=== PATIENT | female | born 1950 | race Caucasian/White ===

== ENCOUNTER 2016-12-18 07:14 | Emergency (ER) | payer OTHER ==
--- NOTE | 2016-12-18 07:19 | ED Physician Documentation ---
PD HPI ABD PAIN - Stated complaint Stated Complaint: LOWER ABD PX - History obtained from History obtained from: Patient - History of Present Illness Timing - onset: Yesterday Timing - duration: Days (08/08) Timing - details: Gradual onset, Still present, Waxing and waning Quality: Cramping, Aching, Pain Location: Suprapubic, LLQ, Other (low back) Radiation: Lower back Improved by: No: Eating, BM Worsened by: Moving, Position. No: Eating, Palpation Associated symptoms: Nausea, Loss of appetite. No: Fever, Vomiting, Diarrhea, Constipation Similar symptoms before: Diagnosis (diverticulitis twice in the past, also occasional UTIs.) Recently seen: Not recently seen Review of Systems Constitutional: reports: Chills, Myalgias. denies: Fever Nose: denies: Rhinorrhea / runny nose, Reviewed and negative Throat: denies: Sore throat Respiratory: denies: Cough GI: reports: Abdominal Pain, Nausea. denies: Abdominal Swelling, Vomiting, Constipation, Diarrhea : denies: Dysuria, Frequency, Discharge, Vaginal bleeding Skin: denies: Rash, Lesions PD PAST MEDICAL HISTORY - Past Medical History Cardiovascular: Valve disorder GI: Diverticulitis - Past Surgical History Past Surgical History: Yes General: Appendectomy Ortho: Hip replacement - Present Medications Home Medications: Ambulatory Orders Medication Instructions Recorded Confirmed Progesterone,Micronized 5 mg MC DAILY 08/28/13 12/18/16 [Progesterone] Cephalexin [Keflex] 500 mg PO QID #28 capsule 12/18/16 Clindamycin [Cleocin] 150 mg PO TID #21 capsule 12/18/16 Ondansetron Odt [Zofran] 4 mg TL Q6H PRN #15 tablet 12/18/16 - Allergies Allergies/Adverse Reactions: Allergies Allergy/AdvReac Type Severity Reaction Status Date / Time Penicillins Allergy Intermediate Rash Verified 08/28/13 07:23 metronidazole [From Flagyl] Allergy Headache Verified 08/28/13 09:51 Metronidazole HCl * Allergy Headache Verified 08/28/13 09:51 [From Flagyl] tetracycline [Tetracycline] Allergy Respiratory Verified 08/28/13 07:22 - Social History Does the pt smoke?: No Smoking Status: Never smoker Does the pt drink ETOH?: Yes Does the pt have substance abuse?: No - POLST Patient has POLST: No PD ED PE NORMAL - Vitals Vital signs reviewed: Yes - General General: Alert and oriented X 3, No acute distress, Well developed/nourished - HEENT HEENT: Pharynx benign - Neck Neck: Supple, no meningeal sign, No adenopathy - Cardiac Cardiac: RRR, No murmur - Respiratory Respiratory: Clear bilaterally - Abdomen Abdomen: Normal bowel sounds, Non distended, No organomegaly, Other (tender LLQ/ suprapubic area without percussion nor rebound. Mild local guarding. Rest of abdomen not tender. ) - Female Female : Deferred - Rectal Rectal: Deferred - Back Back: No CVA TTP - Derm Derm: Normal color, Warm and dry, No rash - Neuro Neuro: Alert and oriented X 3, No motor deficit, Normal speech Results - Vitals Vitals: Oxygen O2 Source Room air - Labs Labs: Laboratory Tests 12/18/16 12/18/16 12/18/16 07:50 07:50 08:30 WBC 14.2 H RBC 4.24 Hgb 12.6 Hct 37.3 MCV 88.1 MCH 29.8 MCHC 33.8 RDW 13.9 Plt Count 248 MPV 8.4 Neut # 11.9 H Lymph # 1.3 L [place] # 0.9 Eos # 0.0 Baso # 0.1 Absolute Nucleated RBC 0.02 Nucleated RBCs 0.1 Sodium 137 Potassium 3.7 Chloride 101 Carbon Dioxide 26 Anion Gap 10.0 BUN 16 Creatinine 0.6 Estimated GFR (MDRD) 100 Glucose 122 H Calcium 9.7 Total Bilirubin 0.8 AST 42 ALT 44 Alkaline Phosphatase 92 Total Protein 8.0 Albumin 4.8 Globulin 3.2 Albumin/Globulin Ratio 1.5 Lipase 27 Urine Color YELLOW Urine Clarity CLEAR Urine pH 6.5 Ur Specific [place] 1.015 Urine Protein NEGATIVE Urine Glucose (UA) NEGATIVE Urine Ketones NEGATIVE Urine Occult Blood TRACE-INTA Urine Nitrite NEGATIVE Urine Bilirubin NEGATIVE Urine Urobilinogen 0.2 (NORMAL) Ur Leukocyte Esterase NEGATIVE Ur Microscopic Review NOT INDICATED Urine Culture Comments NOT INDICATED PD MEDICAL DECISION MAKING - ED course Complexity details: reviewed results, considered differential (presumed diverticulitis and clinically does not seem complicated. Discussed imaging or not, and I don't think she needs imaging as likely diagnosis and does not seem likely perforated nor abscessed at this timing/symptoms of it. ), d/w patient Departure - Departure Disposition: 01 Home, Self Care Clinical Impression: Diverticulitis of gastrointestinal tract Abdominal pain Qualifiers: Abdominal location: lower abdomen, unspecified Qualified Code(s): R10.30 - Lower abdominal pain, unspecified Condition: Stable Record reviewed to determine appropriate education?: Yes Instructions: ED Diverticulitis Follow-Up: Janett Giron MD [Primary Care Provider] - Prescriptions: Clindamycin [Cleocin] 150 mg PO TID #21 capsule Cephalexin [Keflex] 500 mg PO QID #28 capsule Ondansetron Odt [Zofran] 4 mg TL Q6H PRN #15 tablet PRN Reason: Nausea / Vomiting Comments: Drink lots of fluids. TYlenol 4 times daily for pain. Zofran for nausea as needed. Keflex and Clindamycin antibiotics as directed for diverticulitis. Take some probiotics for the next week as well. Recheck if not improving over the next few days, sooner if worsening. Discharge Date/Time: 12/18/16 10:02
[2016-12-18] MEDS ORDERED: ONDANSETRON 4 MG/2 ML VIAL IVP STA (07:42)
[2016-12-18] MEDS ORDERED: KETOROLAC 60 MG/2 ML VIAL IVP STA (07:42)
[2016-12-18] MEDS ORDERED: SODIUM CHLORIDE 0.9% 1,000 ML IV ONE (07:42)
[2016-12-18] MEDS ORDERED: MORPHINE 2 MG/ML SYRINGE IVP STA ×2 (07:42→09:18)
[2016-12-18] MEDS ORDERED: ONDANSETRON 4 MG/2 ML VIAL ONE (07:57)
[2016-12-18] MEDS ORDERED: MORPHINE 2 MG/ML SYRINGE ONE ×2 (07:57→09:17)
[2016-12-18] MEDS ORDERED: KETOROLAC 30 MG/ML VIAL ONE (07:57)
[2016-12-18 08:15] LABS: ALBUMIN/GLOBULIN RATIO 1.5 (1.0-2.2); BILIRUBIN,TOTAL 0.8 mg/dL (0.2-1.0); CALCIUM 9.7 mg/dL (8.5-10.3); CREATININE 0.6 mg/dL (0.4-1.0); POTASSIUM 3.7 mmol/L (3.5-5.0)
[2016-12-18 08:31] LABS: BASOPHILS # (AUTO) 0.1 10^3/uL (0.0-0.1); BASOPHILS % (AUTO) 0.4 %; EOSINOPHILS % (AUTO) 0.2 %; HCT - HEMATOCRIT 37.3 % (37.0-47.0); HGB - HEMOGLOBIN 12.6 g/dL (12.0-16.0); LYMPHOCYTES # (AUTO) 1.3 10^3/uL (1.5-3.5); LYMPHOCYTES % (AUTO) 9.4 %; MEAN CORPUSCULAR HEMOGLOBIN 29.8 pg (27.0-31.0); MEAN CORPUSCULAR HGB CONC 33.8 g/dL (32.0-36.0); MEAN CORPUSCULAR VOLUME 88.1 fL (81.0-99.0); MEAN PLATELET VOLUME 8.4 fL (7.9-10.8); MONOCYTES # (AUTO) 0.9 10^3/uL (0.0-1.0); MONOCYTES % (AUTO) 6.3 %; NEUTROPHILS # (AUTO) 11.9 10^3/uL (1.5-6.6); NEUTROPHILS % (AUTO) 83.7 %; NUCLEATED RED BLOOD CELLS AUTO 0.1 /100WBC; RED BLOOD COUNT 4.24 10^6/uL (4.20-5.40); RED CELL DISTRIBUTION WIDTH 13.9 % (12.0-15.0); UNCORRECTED WHITE BLOOD COUNT 14.2 x10^3/uL; WHITE BLOOD COUNT 14.2 x10^3/uL (4.8-10.8)
[2016-12-18] MEDS ORDERED: cefTRIAXone 1 GM in SODIUM CHLORIDE 0.9% MINIBAG 100 ML IV STA (08:31)
[2016-12-18] MEDS ORDERED: cefTRIAXone 1 GM VIAL ONE (08:35)
[2016-12-18 08:41] LABS: BILIRUBIN,URINE NEGATIVE (NEGATIVE); PH,URINE 6.5 PH (5.0-7.5)
[2016-12-18 08:56] LABS: UA CHARGE (STRIP ONLY) YES; UR CULTURE IF IND NOT INDICATED
[2016-12-18] MEDS ORDERED: CLINDAMYCIN 150 MG CAPSULE PO STA (09:52)
[2016-12-18] MEDS ORDERED: CLINDAMYCIN 150 MG CAPSULE PO ONE (09:55)
[2016-12-18 10:02] VITALS: BP 104/50
== END 2016-12-18 10:02 | disposition home or self-care (01) ==
LOC: ED 07:14
DX: K57.92 Diverticulitis of intestine, part unspecified, without perforation or abscess without bleeding (principal)
CPT/HCPCS: 36415; 80053; 81003; 83690; 85025; 96361; 96365; 96375; 99284; A9270; 81001; 87086

== ENCOUNTER 2017-08-31 10:01 | Outpatient (CLI) | payer OTHER ==
--- NOTE | 2017-09-01 13:13 | DEXA Report ---
DEXA: 08/31/2017 CLINICAL INDICATION: Postmenopausal. TECHNIQUE: Dual energy x-ray absorptiometry (DXA) was performed on a [employer] system. Regions measured are the AP spine, femoral neck, and, if needed, forearm. COMPARISON: None. In accordance with the International Society for Clinical Densitometry (ISCD) guidelines, data from previous exams may be reanalyzed using current recommendations and techniques. This is done to allow a more accurate basis for comparison with the current study. FINDINGS The data for the lumbar spine is as follows: REGION BMD (g/cm/cm) T-SCORE Z-SCORE L1 1.026 -0.9 1.0 L2 1.053 -1.2 0.6 L3 1.020 -1.5 0.3 L4 1.003 -1.6 0.2 L1-L4 1.025 -1.3 0.5 NOTE: All evaluable vertebrae are used for classification. The data for the hip is as follows: REGION BMD (g/cm/cm) T-SCORE Z-SCORE Neck 0.780 -1.9 -0.2 TOTAL 0.838 -1.3 0.1 NOTE: The femoral neck or total proximal femur, whichever is lowest, is used for classification. IMPRESSION THE WHO CLASSIFICATION BASED ON THE INTERNATIONAL REFERENCE STANDARD IS OSTEOPENIA. THE FRACTURE RISK IS INCREASED. RECOMMENDATION: Patients with diagnosis of osteoporosis or osteopenia should have regular bone mineral density assessment. For those eligible for Medicare, routine testing is allowed once every 2 years. Testing frequency can be increased for patients who have rapidly progressing disease or for those who are receiving medical therapy to restore bone mass. COMMENT: World Health Organization (WHO) definitions for osteoporosis and osteopenia: NORMAL BMD: T-score at 1.0 or higher, fracture risk is low. OSTEOPENIA BMD: T-score between 1.0 and -2.5, fracture risk is increased. OSTEOPOROSIS BMD: T-score at 2.5 or lower, fracture risk high. National Osteoporosis Foundation recommends: 1. Obtain adequate dietary calcium (at least 1200 mg per day) and vitamin D (400 -800 international units per day). 2. Participate, as appropriate, in regular weightbearing and muscle- strengthening exercise. 3. Avoid tobacco use and reduce alcohol and caffeine intake. 4. For more detailed information see the website at www.NOF.org. TD: 08/31/2017 19:46 MTDD
== END 2017-08-31 10:02 | disposition home or self-care (01) ==
LOC: DI 10:01
PROVIDERS: ATTEND Naturopath
DX: Z13.820 Encounter for screening for osteoporosis (principal); M85.89 Other specified disorders of bone density and structure, multiple sites; Z78.0 Asymptomatic menopausal state
CPT/HCPCS: 77080

== ENCOUNTER 2019-02-06 08:21 | Emergency (ER) | payer OTHER ==
[2019-02-06 08:37] VITALS: BP 147/83
--- NOTE | 2019-02-06 08:58 | ED Physician Documentation ---
PD HPI URI - Stated complaint Stated Complaint: SORE THROAT - Chief complaint Chief Complaint: Heent - History obtained from History obtained from: Patient - History of Present Illness Timing - onset: How many days ago (2) Timing duration: Days (2) Timing details: Gradual onset, Still present Associated symptoms: Nasal congestion, Sore throat. 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 denies: Rhinorrhea / runny nose, Sinus pressure / pain Throat: reports: Sore throat. denies: Oral lesions / sores Respiratory: denies: Cough PD PAST MEDICAL HISTORY - Past Medical History Past Medical History: Yes Cardiovascular: Valve disorder Respiratory: Pneumonia GI: Diverticulitis - Past Surgical History Past Surgical History: Yes General: Appendectomy Ortho: Hip replacement - Present Medications Home Medications: Ambulatory Orders Medication Instructions Recorded Confirmed No Known Home Medications 02/06/19 02/06/19 - Allergies Allergies/Adverse Reactions: Allergies Allergy/AdvReac Type Severity Reaction Status Date / Time Penicillins Allergy Intermediate Rash Verified 02/06/19 08:40 metronidazole [From Flagyl] Allergy Headache Verified 02/06/19 08:40 Metronidazole HCl * Allergy Headache Verified 02/06/19 08:40 [From Flagyl] tetracycline [Tetracycline] Allergy Respiratory Verified 02/06/19 08:40 - Social History Does the pt smoke?: No Smoking Status: Never smoker Does the pt drink ETOH?: Yes Does the pt have substance abuse?: No - POLST Patient has POLST: No PD ED PE NORMAL - Vitals Vital signs reviewed: Yes - General General: Alert and oriented X 3, No acute distress, Well developed/nourished - HEENT HEENT: Moist mucous membranes. No: Pharynx benign (redness without exudate right tonsil. No peritonsillar swelling. ) - Neck Neck: Supple, no meningeal sign, No adenopathy - Cardiac Cardiac: RRR, No murmur - Respiratory Respiratory: Clear bilaterally - Derm Derm: Normal color, Warm and dry, No rash Results - Vitals Vitals: Vital Signs - 24 hr 02/06/19 08:31 Temperature 36.7 C Heart Rate 76 Respiratory 16 Rate Blood Pressure 147/83 H O2 Saturation 99 Oxygen O2 Source Room air - Labs Labs: Laboratory Tests 02/06/19 09:18 Group A Strep Rapid Negative PD MEDICAL DECISION MAKING - ED course Complexity details: reviewed results, considered differential, d/w patient ED course: Patient called with rapid test result by me. Departure - Departure Disposition: 01 Home, Self Care Clinical Impression: Pharyngitis Qualifiers: Pharyngitis/tonsillitis etiology: unspecified etiology Qualified Code(s): J02.9 - Acute pharyngitis, unspecified Condition: Stable Record reviewed to determine appropriate education?: Yes Instructions: ED Pharyngitis Viral Report Pending Follow-Up: Janett Giron MD [Primary Care Provider] - Comments: Rapid strep test is pending and if negative culture will then be pending. We will call you if the results is positive. Discharge Date/Time: 02/06/19 09:26
== END 2019-02-06 09:26 | disposition home or self-care (01) ==
LOC: ED 08:21
DX: J02.9 Acute pharyngitis, unspecified (principal)
CPT/HCPCS: 87070; 87430; 99281; 99282

== ENCOUNTER 2019-05-19 10:15 | Emergency (ER) | payer OTHER ==
[2019-05-19 10:49] LABS: BILIRUBIN,URINE NEGATIVE (NEGATIVE); GLUCOSE, URINE (UA) NEGATIVE (NEGATIVE); KETONES,URINE (UA) NEGATIVE (NEGATIVE); LEUKOCYTE ESTERASE, URINE NEGATIVE (NEGATIVE); NITRITE,URINE NEGATIVE (NEGATIVE); OCCULT BLOOD,URINE SMALL (NEGATIVE); PROTEIN,URINE NEGATIVE (NEGATIVE); UROBILINOGEN,URINE 0.2 (NORMAL) E.U./dL (NORMAL)
[2019-05-19 10:50] LABS: CLARITY,URINE CLEAR (CLEAR)
[2019-05-19 10:59] LABS: BACTERIA,URINE Rare /HPF (None Seen); RBC,URINE 0-5 /HPF (0-5); SQUAMOUS EPITHELIAL CELL,UR FEW Squamous (<= Few)
[2019-05-19 11:03] LABS: BASOPHILS # (AUTO) 0.1 10^3/uL (0.0-0.1); BASOPHILS % (AUTO) 0.5 %; EOSINOPHILS % (AUTO) 0.3 %; HGB - HEMOGLOBIN 12.7 g/dL (12.0-16.0); LYMPHOCYTES # (AUTO) 1.3 10^3/uL (1.5-3.5); LYMPHOCYTES % (AUTO) 11.4 %; MEAN CORPUSCULAR HEMOGLOBIN 29.7 pg (27.0-31.0); MEAN CORPUSCULAR HGB CONC 32.2 g/dL (32.0-36.0); MEAN CORPUSCULAR VOLUME 92.5 fL (81.0-99.0); MEAN PLATELET VOLUME 10.2 fL (7.9-10.8); MONOCYTES # (AUTO) 0.5 10^3/uL (0.0-1.0); MONOCYTES % (AUTO) 4.6 %; NEUTROPHILS # (AUTO) 9.3 10^3/uL (1.5-6.6); NEUTROPHILS % (AUTO) 82.8 %; PLT - PLATELET COUNT 306 10^3/uL (130-450); RED BLOOD COUNT 4.27 10^6/uL (4.20-5.40); RED CELL DISTRIBUTION WIDTH 13.4 % (12.0-15.0); WHITE BLOOD COUNT 11.2 x10^3/uL (4.8-10.8)
[2019-05-19 11:16] LABS: ALBUMIN 4.4 g/dL (3.2-5.5); ALBUMIN/GLOBULIN RATIO 1.3 (1.0-2.2); BILIRUBIN,TOTAL 0.9 mg/dL (0.2-1.0); CALCIUM 9.8 mg/dL (8.5-10.3); CREATININE 0.6 mg/dL (0.4-1.0); TOTAL PROTEIN 7.7 g/dL (6.7-8.2)
[2019-05-19] MEDS ORDERED: IOVERSOL 320 100 ML VIAL IVP ONE (12:10)
--- NOTE | 2019-05-19 12:16 | ED Physician Documentation ---
PD HPI ABD PAIN - Stated complaint Stated Complaint: LOWER ABD PX - Chief complaint Chief Complaint: Abd Pain - History obtained from History obtained from: Patient - History of Present Illness Timing - onset: How many weeks ago (1) Timing - duration: Weeks (1) Timing - details: Still present, Other (worsening lower abdominal pain and rectal pain) Severity Comments: moderate Quality: Aching, Pain Location: RLQ, Suprapubic, LLQ Radiation: Other (rectum) Improved by: BM Worsened by: Other (nothing) Associated symptoms: Nausea. No: Fever, Vomiting, Hematemesis, Diarrhea, Co nstipation, Melena, Hematochezia, Dysuria, Hematuria, Chest pain, Dizzy, Near syncope / syncope, Loss of appetite, Vaginal bleeding Similar symptoms before: Diagnosis (prior hx of diverticulitis) Recently seen: Not recently seen - Treatment prior to arrival Treatment prior to arrival: pepcid and aloe over her abdomen Review of Systems Ten Systems: 10 systems reviewed and negative Constitutional: reports: Fatigue. denies: Fever, Chills Cardiac: reports: Reviewed and negative Respiratory: reports: Reviewed and negative GI: reports: Nausea. denies: Abdominal Pain, Vomiting Skin: denies: Rash Neurologic: reports: Reviewed and negative Psychiatric: reports: Reviewed and negative Endocrine: reports: Reviewed and negative Immunocompromised: reports: Reviewed and negative PD PAST MEDICAL HISTORY - Past Medical History Past Medical History: Yes Cardiovascular: Valve disorder Respiratory: Pneumonia GI: Diverticulitis - Past Surgical History Past Surgical History: Yes General: Appendectomy Ortho: Hip replacement - Present Medications Home Medications: Ambulatory Orders Medication Instructions Recorded Confirmed Amox/Clav 875/125 [Augmentin] 1 each PO Q12H #28 tablet 05/19/19 Hydrocodone/Acetaminophen 1 - 2 each PO Q6H PRN #14 tablet 05/19/19 [Hydrocodon-Acetaminophen 5-325] Ondansetron Odt [Zofran] 4 mg TL Q6H PRN #10 tablet 05/19/19 - Allergies Allergies/Adverse Reactions: Allergies Allergy/AdvReac Type Severity Reaction Status Date / Time Penicillins Allergy Intermediate Rash Verified 05/19/19 10:17 metronidazole [From Flagyl] Allergy Headache Verified 05/19/19 10:17 Metronidazole HCl * Allergy Headache Verified 05/19/19 10:17 [From Flagyl] tetracycline [Tetracycline] Allergy Respiratory Verified 05/19/19 10:17 - Social History Does the pt smoke?: No Smoking Status: Never smoker Does the pt drink ETOH?: Yes Does the pt have substance abuse?: No - POLST Patient has POLST: No PD ED PE NORMAL - Vitals Vital signs reviewed: Yes - General General: Alert and oriented X 3, No acute distress, Well developed/nourished - HEENT HEENT: Atraumatic, Pharynx benign - Neck Neck: Supple, no meningeal sign, No JVD - Cardiac Cardiac: RRR - Respiratory Respiratory: No respiratory distress - Abdomen Abdomen: Soft, Non distended, Other (diffuse mild lower quadrant tenderness ) - Female Female : Deferred - Rectal Rectal: Deferred - Derm Derm: Normal color, Warm and dry, No rash - Extremities Extremities: No deformity, No edema - Neuro Neuro: Alert and oriented X 3 Eye Opening: Spontaneous Motor: Obeys Commands Verbal: Oriented GCS Score: 15 - Psych Psych: Normal mood, Normal affect Results - Vitals Vitals: Vital Signs - 24 hr 05/19/19 05/19/19 05/19/19 10:18 12:46 13:05 Temperature 37 C 3.6 C L Heart Rate 88 81 76 Respiratory 15 16 16 Rate Blood Pressure 118/55 L 137/69 H 142/68 H O2 Saturation 100 97 99 05/19/19 05/19/19 13:54 14:05 Temperature Heart Rate 75 74 Respiratory 16 16 Rate Blood Pressure 123/64 139/68 H O2 Saturation 98 97 Oxygen O2 Source Room air - Labs Labs: Laboratory Tests 05/19/19 05/19/19 05/19/19 10:25 10:25 10:41 WBC 11.2 H RBC 4.27 Hgb 12.7 Hct 39.5 MCV 92.5 MCH 29.7 MCHC 32.2 RDW 13.4 Plt Count 306 MPV 10.2 Neut # (Auto) 9.3 H Lymph # (Auto) 1.3 L [place] # (Auto) 0.5 Eos # (Auto) 0.0 Baso # (Auto) 0.1 Absolute Nucleated RBC 0.00 Nucleated RBC % 0.0 Sodium 142 Potassium 4.1 Chloride 104 Carbon Dioxide 28 Anion Gap 10.0 BUN 12 Creatinine 0.6 Estimated GFR (MDRD) 100 Glucose 179 H Calcium 9.8 Total Bilirubin 0.9 AST 33 ALT 31 Alkaline Phosphatase 81 Total Protein 7.7 Albumin 4.4 Globulin 3.3 Albumin/Globulin Ratio 1.3 Lipase 45 Urine Color YELLOW Urine Clarity CLEAR Urine pH 6.0 Ur Specific [place] 1.020 Urine Protein NEGATIVE Urine Glucose (UA) NEGATIVE Urine Ketones NEGATIVE Urine Occult Blood SMALL H Urine Nitrite NEGATIVE Urine Bilirubin NEGATIVE Urine Urobilinogen 0.2 (NORMAL) Ur Leukocyte Esterase NEGATIVE Urine RBC 0-5 Urine WBC 0-3 Ur Squamous Epith Cells FEW Squamous Urine Bacteria Rare Ur Microscopic Review INDICATED Urine Culture Comments NOT INDICATED mild leukocytosis, neg UA PD MEDICAL DECISION MAKING - ED course Complexity details: reviewed results, re-evaluated patient, considered differential, d/w patient, d/w family ED course: ddx- diverticulitis, colitis, proctitis, kidney stone, UTI 68 y/o F with hx of diverticulitis with 1 week of lower abdominal pain and now with some rectal pain., loose stool, nausea, no fever. Abdomen with diffuse lower abdominal tenderness, no guarding or rebound. Pt with stable vitals, afebrile. Note her Temperature recorded in the ED as 3.6 C but is actually 36 C. Labs are normal except a mild leukocytosis. CT shows an uncomplicated sigmoid diverticulitis. UA showed hematuria which may be due to inflammation in the pelvis from her infection. Pt has hx of skin test positive for penicillin allergy 40 years ago but has had no severe reaction. Thus will give trial of augmentin given her hx of poor tolerance with flagyl. Pt tolerated a dose of augmentin here without complication. Stable for discharge home with outpt f/u and return precautions. Departure - Departure Disposition: 01 Home, Self Care Clinical Impression: Sigmoid diverticulitis Condition: Stable Record reviewed to determine appropriate education?: Yes Instructions: ED Diverticulitis Follow-Up: Janett Giron MD [Primary Care Provider] - Within 1 week (to recheck your symptoms ) Prescriptions: Amox/Clav 875/125 [Augmentin] 1 each PO Q12H #28 tablet Hydrocodone/Acetaminophen [Hydrocodon-Acetaminophen 5-325] 1 - 2 each PO Q6H PRN #14 tablet PRN Reason: pain Ondansetron Odt [Zofran] 4 mg TL Q6H PRN #10 tablet PRN Reason: Nausea / Vomiting Comments: You have sigmoid diverticulitis. You should take the prescribed antibiotic until complete. If you develop a reaction (mouth swelling, difficulty breathing or severe rash) return to the ED to assess your symptoms and change the antibiotic. Nausea, diarrhea and typical side events from antibiotics and are not true allergies. IF you develop severe worsening pain you should also return to the ED. This should improve with the antibiotic you can take ibuprofen as needed for pain and the prescribed narcotic if pain is severe. Zofran is for nausea and can be used as needed as well.
[2019-05-19] MEDS ORDERED: MORPHINE 2 MG/ML CARPUJECT IVP STA (12:42)
[2019-05-19] MEDS ORDERED: ONDANSETRON 4 MG/2 ML VIAL IVP STA (12:44)
--- NOTE | 2019-05-19 13:17 | CT Report ---
Reason: lower abdominal pain, rectal pain, diarrhea Procedure Date: 05/19/2019 Accession Number: [id number] / [id number] Procedure: CT - Abdomen/Pelvis W CPT Code: FULL RESULT: EXAM: CT ABDOMEN AND PELVIS EXAM DATE: 05/19/2019 12:30 PM. CLINICAL HISTORY: Lower abdominal pain, rectal pain, diarrhea. COMPARISONS: ABDOMEN/PELVIS W/O 08/28/2013 9:10 AM. TECHNIQUE: Routine helical CT imaging was performed through the abdomen and pelvis. IV contrast: 100 mL Optiray 320. Enteric contrast: No. Reconstructions: Coronal and sagittal. In accordance with CT protocol optimization, one or more of the following dose reduction techniques were utilized for this exam: automated exposure control, adjustment of mA and/or KV based on patient size, or use of iterative reconstructive technique. FINDINGS: Lung Bases: Left lower lobe granuloma. Mild dependent atelectasis. Small hernia. No effusions or cardiac enlargement. Liver: Normal. No masses. Gallbladder/Bile Ducts: Unremarkable. Spleen: Normal. Pancreas: Normal. Adrenal Glands: Normal. Kidneys: Normal. No masses or hydronephrosis. Peritoneal Cavity/Bowel: No pneumoperitoneum, mass or adenopathy. No collection is noted. Small volume ascites noted in the pelvis. There is a long segment of inflamed sigmoid colon demonstrating moderate wall thickening and mild to moderate adjacent fat inflammatory changes. No discrete mass, free air, or loculated fluid collection seen. Remaining large bowel, small bowel and stomach are normal. Appendix is absent. Pelvic Organs: Significant streak artifacts obscure portions of the pelvis due to a right hip arthroplasty. Trace free fluid noted in the pelvis. The uterus is absent. Normal bladder. Moderate pericolonic inflammation surrounds the sigmoid colon. No collections are identified concerning for an abscess. Vasculature: Patchy atheromatous plaques are present in the abdominal aorta and branch vessels. No aneurysm. Normal IVC. Bones: No significant abnormality. Other: None. IMPRESSION: 1. Acute sigmoid diverticulitis. 2. No complications such as obstruction, perforation or abscess. 3. Previous hysterectomy. RAD[facility]
[2019-05-19] MEDS ORDERED: AMOX/CLAV 875 MG/125 MG TABLET PO STA (13:37)
[2019-05-19 14:22] VITALS: BP 124/63
== END 2019-05-19 14:29 | disposition home or self-care (01) ==
LOC: ED 10:15
DX: K57.32 Diverticulitis of large intestine without perforation or abscess without bleeding (principal); R31.9 Hematuria, unspecified
CPT/HCPCS: 36415; 74177; 80053; 81001; 83690; 85025; 96374; 99284; A9270; Q9967; 81003; 87086

== ENCOUNTER 2019-06-01 00:54 | Emergency (ER) | payer OTHER ==
[2019-06-01 01:38] LABS: BASOPHILS % (AUTO) 0.3 %; EOSINOPHILS # (AUTO) 0.1 10^3/uL (0.0-0.7); EOSINOPHILS % (AUTO) 0.5 %; HGB - HEMOGLOBIN 12.1 g/dL (12.0-16.0); LYMPHOCYTES # (AUTO) 1.9 10^3/uL (1.5-3.5); LYMPHOCYTES % (AUTO) 12.5 %; MEAN CORPUSCULAR HEMOGLOBIN 29.9 pg (27.0-31.0); MEAN CORPUSCULAR VOLUME 90.6 fL (81.0-99.0); MEAN PLATELET VOLUME 9.9 fL (7.9-10.8); MONOCYTES # (AUTO) 0.8 10^3/uL (0.0-1.0); NEUTROPHILS # (AUTO) 12.3 10^3/uL (1.5-6.6); NEUTROPHILS % (AUTO) 81.3 %; PLT - PLATELET COUNT 332 10^3/uL (130-450); RED BLOOD COUNT 4.05 10^6/uL (4.20-5.40); RED CELL DISTRIBUTION WIDTH 13.1 % (12.0-15.0); WHITE BLOOD COUNT 15.1 x10^3/uL (4.8-10.8)
--- NOTE | 2019-06-01 01:46 | ED Physician Documentation ---
PD HPI ABD PAIN - Stated complaint Stated Complaint: ABD PX - Chief complaint Chief Complaint: Abd Pain - History obtained from History obtained from: Patient - History of Present Illness Timing - onset: Enter time (20:30), Today Timing - duration: Hours Timing - details: Gradual onset, Constant, Waxing and waning Pain level now: 6 Quality: Pain Location: LLQ Radiation: Other (no radiation) Improved by: Laying still Worsened by: Moving, Palpation Associated symptoms: Nausea. No: Fever, Vomiting, Hematochezia Similar symptoms before: Diagnosis (diverticulitis) Recently seen: Emergency Dept - Additional information Additional information: T+R from this ED nearly 2 weeks ago, diagnosed with diverticulitis, prescribed augmentin of which she has 1 day (of 14) remaining. she had felt like her symptoms improved to the point of resolution, and says her WBC was 6 when she sa w PMD in f/u. however, tonight the pain in LLQ returned Review of Systems Constitutional: reports: Reviewed and negative Cardiac: reports: Reviewed and negative Respiratory: reports: Reviewed and negative GI: reports: Abdominal Pain, Nausea. denies: Vomiting, Constipation, Diarrhea : denies: Dysuria, Frequency PD PAST MEDICAL HISTORY - Past Medical History Past Medical History: Yes Cardiovascular: Valve disorder Respiratory: Pneumonia GI: Diverticulitis - Past Surgical History Past Surgical History: Yes General: Appendectomy Ortho: Hip replacement - Present Medications Home Medications: Ambulatory Orders Medication Instructions Recorded Confirmed Amox/Clav 875/125 [Augmentin] 1 each PO Q12H #28 tablet 05/19/19 Hydrocodone/Acetaminophen 1 - 2 each PO Q6H PRN #14 tablet 05/19/19 [Hydrocodon-Acetaminophen 5-325] Ondansetron Odt [Zofran] 4 mg TL Q6H PRN #10 tablet 05/19/19 Clindamycin HCl [Clindamycin 300MG 600 mg PO TID #58 capsule 06/01/19 CAP] Moxifloxacin [Avelox] 400 mg PO DAILY #9 tablet 06/01/19 Ondansetron Odt [Zofran Odt] 4 mg TL Q6H PRN #10 tablet 06/01/19 oxyCODONE [Roxicodone] 5 - 10 mg PO Q6H PRN #10 tablet 06/01/19 - Allergies Allergies/Adverse Reactions: Allergies Allergy/AdvReac Type Severity Reaction Status Date / Time Penicillins Allergy Intermediate Rash Verified 06/01/19 00:58 metronidazole [From Flagyl] Allergy Headache Verified 06/01/19 00:58 Metronidazole HCl * Allergy Headache Verified 06/01/19 00:58 [From Flagyl] tetracycline [Tetracycline] Allergy Respiratory Verified 06/01/19 00:58 - Social History Does the pt smoke?: No Smoking Status: Never smoker Does the pt drink ETOH?: Yes Does the pt have substance abuse?: No - Immunizations Immunizations are current?: Yes - POLST Patient has POLST: No PD ED PE NORMAL - Vitals Vital signs reviewed: Yes - General General: Alert and oriented X 3, No acute distress, Well developed/nourished - HEENT HEENT: Moist mucous membranes - Cardiac Cardiac: RRR, No murmur - Respiratory Respiratory: No respiratory distress, Clear bilaterally - Abdomen Abdomen: Soft, Non distended - Back Back: No CVA TTP - Derm Derm: Normal color, Warm and dry, No rash PD ED PE EXPANDED - Abdomen Abdomen: Normal Bowel sounds, Tender to palpation, LLQ. No: Rebound, Guarding Results - Vitals Vitals: Vital Signs - 24 hr 06/01/19 06/01/19 06/01/19 00:58 03:03 04:26 Temperature 36.5 C Heart Rate 72 82 73 Respiratory 16 16 16 Rate Blood Pressure 120/76 146/78 H 135/69 H O2 Saturation 100 98 98 06/01/19 05:07 Temperature 36.7 C Heart Rate Respiratory Rate Blood Pressure O2 Saturation Oxygen O2 Source Room air - Labs Labs: Laboratory Tests 06/01/19 06/01/19 01:15 01:15 WBC 15.1 H RBC 4.05 L Hgb 12.1 Hct 36.7 L MCV 90.6 MCH 29.9 MCHC 33.0 RDW 13.1 Plt Count 332 MPV 9.9 Neut # (Auto) 12.3 H Lymph # (Auto) 1.9 [place] # (Auto) 0.8 Eos # (Auto) 0.1 Baso # (Auto) 0.0 Absolute Nucleated RBC 0.00 Nucleated RBC % 0.0 Sodium 139 Potassium 3.8 Chloride 104 Carbon Dioxide 25 Anion Gap 10.0 BUN 11 Creatinine 0.6 Estimated GFR (MDRD) 100 Glucose 131 H Calcium 9.3 Total Bilirubin 0.8 AST 28 ALT 27 Alkaline Phosphatase 86 Total Protein 7.4 Albumin 4.3 Globulin 3.1 Albumin/Globulin Ratio 1.4 Lipase 36 - Rads (name of study) CT A/P Radiology: Prelim report reviewed, See rad report PD MEDICAL DECISION MAKING - ED course Complexity details: reviewed results, re-evaluated patient, considered differential, d/w patient, d/w family Departure - Departure Disposition: Home, Self Care Clinical Impression: Diverticulitis of gastrointestinal tract Condition: Good Instructions: ED Diverticulitis Follow-Up: Janett Giron MD [Primary Care Provider] - Prescriptions: Clindamycin HCl [Clindamycin 300MG CAP] 600 mg PO TID #58 capsule Moxifloxacin [Avelox] 400 mg PO DAILY #9 tablet Ondansetron Odt [Zofran Odt] 4 mg TL Q6H PRN #10 tablet PRN Reason: Nausea / Vomiting oxyCODONE [Roxicodone] 5 - 10 mg PO Q6H PRN #10 tablet PRN Reason: Pain Discharge Date/Time: 06/01/19 05:10
[2019-06-01 01:51] LABS: ALBUMIN 4.3 g/dL (3.2-5.5); ALBUMIN/GLOBULIN RATIO 1.4 (1.0-2.2); BILIRUBIN,TOTAL 0.8 mg/dL (0.2-1.0); CALCIUM 9.3 mg/dL (8.5-10.3); CREATININE 0.6 mg/dL (0.4-1.0); TOTAL PROTEIN 7.4 g/dL (6.7-8.2)
[2019-06-01] MEDS ORDERED: KETOROLAC 30 MG/ML VIAL IVP STA (02:07)
[2019-06-01] MEDS ORDERED: ONDANSETRON 4 MG/2 ML VIAL IVP STA ×2 (02:18→04:44)
[2019-06-01] MEDS ORDERED: IOVERSOL 320 100 ML VIAL IVP ONE ×2 (02:34→02:54)
--- NOTE | 2019-06-01 03:22 | CT Report ---
Reason: LLQ pain Procedure Date: 06/01/2019 Accession Number: [id number] / [id number] Procedure: CT - Abdomen/Pelvis W CPT Code: FULL RESULT: EXAM: CT ABDOMEN AND PELVIS EXAM DATE: 06/01/2019 02:40 AM. CLINICAL HISTORY: LLQ pain. COMPARISONS: ABDOMEN/PELVIS W/ 05/19/2019 12:24 PM ABDOMEN/PELVIS W/O 08/28/2013 9:10 AM ABD/PEL 01/31/2012 12:37 AM. TECHNIQUE: Routine helical CT imaging was performed through the abdomen and pelvis. IV contrast: OPTI 320 100ML. Enteric contrast: No. Reconstructions: Coronal and sagittal. In accordance with CT protocol optimization, one or more of the following dose reduction techniques were utilized for this exam: automated exposure control, adjustment of mA and/or KV based on patient size, or use of iterative reconstructive technique. FINDINGS: Lung Bases: Unremarkable. Liver: Normal. No masses. Gallbladder/Bile Ducts: Unremarkable. Spleen: Normal. Pancreas: Normal. Adrenal Glands: Normal. Kidneys: Normal. No masses or hydronephrosis. Peritoneal Cavity/Bowel: There is no small bowel distention. There are several small to borderline size lymph nodes within the mesentery. The largest lymph node measures up to 11 mm in short axis diameter. There is several nonenlarged retroperitoneal lymph nodes. The appendix has been resected. There are persistent edematous changes in the region of the sigmoid colon. There are multiple diverticula. There is no evidence for perforation. Pelvic Organs: The uterus is atrophic and partially calcified. Vasculature: No aneurysms or other significant abnormality. Bones: Total right hip replacement noted. Other: None. IMPRESSION: 1. Diverticulosis and sigmoid diverticulitis similar to the prior study. No improvement. No evidence for perforation. 2. Multiple small to borderline size lymph nodes in the root of the mesentery similar to and unchanged from multiple prior studies. 3. Atrophic and partially calcified uterus. RADIA
[2019-06-01] MEDS ORDERED: MORPHINE 2 MG/ML CARPUJECT IVP STA (04:07)
[2019-06-01] MEDS ORDERED: CLINDAMYCIN 150 MG CAPSULE PO STA (04:22)
[2019-06-01 04:26] VITALS: BP 135/69
[2019-06-01] MEDS ORDERED: MOXIFLOXACIN 400 MG TABLET PO ONE (04:26)
[2019-06-01] MEDS ORDERED: MOXIFLOXACIN 400 MG TABLET PO SCH (05:00)
== END 2019-06-01 05:10 | disposition home or self-care (01) ==
LOC: ED 00:54
DX: K57.32 Diverticulitis of large intestine without perforation or abscess without bleeding (principal)
CPT/HCPCS: 36415; 74177; 80053; 83690; 85025; 96374; 96375; 96376; 99284; A9270; Q9967

== ENCOUNTER 2019-06-28 08:13 | Outpatient (CLI) | payer OTHER ==
[2019-06-29 04:31] LABS: ESTRADIOL <15 pg/mL
[2019-07-01 14:46] LABS: DHEA SULFATE 84 mcg/dL (12-133)
== END 2019-06-28 08:14 | disposition home or self-care (01) ==
LOC: LAB.S 08:13
PROVIDERS: ATTEND Naturopath
DX: Z13.1 Encounter for screening for diabetes mellitus (principal); Z79.890 Hormone replacement therapy
CPT/HCPCS: 36415; 81599; 82627; 82670; 82672; 82947; 83525

== ENCOUNTER 2020-05-14 08:20 | Outpatient (CLI) | payer OTHER | END 2020-05-14 23:59 | disposition home or self-care (01) | LOC: COV 08:20 | PROVIDERS: ATTEND Family Medicine | DX: R53.83 Other fatigue (principal); R19.7 Diarrhea, unspecified; R11.0 Nausea ==

== ENCOUNTER 2020-08-17 16:55 | Outpatient (CLI) | payer OTHER ==
--- NOTE | 2020-08-17 21:09 | XRAY Report ---
PROCEDURE: Wrist 4 View LT INDICATIONS: LEFT WRIST PAIN TECHNIQUE: 4 views of the wrist were acquired. COMPARISON: None FINDINGS: Bones: Decreased mineralization. No fractures or dislocations. No suspicious bony lesions. Scaphoid view: No fractures seen. Soft tissues: No suspicious soft tissue calcifications. IMPRESSION: No visible fractures. If there is continued concern for fracture, immobilization and follow-up imagin g in 7-10 days is recommended. Reviewed by: Fani Tapia MD on 08/17/2020 9:08 PM [facility] Approved by: Fani Tapia MD on 08/17/2020 9:08 PM [facility] Station ID: [id number]
== END 2020-08-17 23:59 | disposition home or self-care (01) ==
LOC: DI.S 16:55
PROVIDERS: ATTEND Physician Assistant
DX: M25.532 Pain in left wrist (principal)

== ENCOUNTER 2020-08-31 15:30 | Outpatient (CLI) | payer OTHER | END 2020-08-31 23:59 | disposition home or self-care (01) | LOC: COV 15:30 | PROVIDERS: ATTEND Family Medicine | DX: R05 Cough (principal); R53.83 Other fatigue; R19.7 Diarrhea, unspecified; R43.9 Unspecified disturbances of smell and taste; R09.81 Nasal congestion; Z20.822 Contact with and (suspected) exposure to COVID-19 ==

== ENCOUNTER 2020-09-02 07:37 | Outpatient (CLI) | payer OTHER ==
--- NOTE | 2020-09-02 09:17 | MRI Report ---
PROCEDURE: Wrist LT W/O INDICATIONS: LEFT WRIST PAIN TECHNIQUE: Noncontrast coronal proton density fast spin echo and T2 fast spin echo with fat saturation; coronal 3-D gradient echo, axial T1 spin echo and T2 fast spin echo with fat saturation, sagittal T1 spin ech o through the wrist. COMPARISON: Left wrist radiographs 08/17/2020. FINDINGS: Image quality: Excellent. Bones and cartilage: There is a nondisplaced fracture in the dorsal aspect of the triquetrum with reagan rrounding edema. Mild trabecular bone injury is also seen in the dorsal aspect of the hamate with a p robable incomplete fracture line. The carpal bones are normally aligned. Mild degenerative changes are seen at the first and second carpometacarpal joints. Carpal ligaments: The scapholunate and lunotriquetral ligaments appear intact. Triangular fibrocartilage complex: The triangular fibrocartilage appears intact. Tendons and soft tissues: The carpal tunnel structures appear normal, including the median nerve. T he ulnar nerve appears normal within Guyon?s canal. There is mild tendinosis of the extensor carpi u lnaris tendon. The remaining extensor compartment tendons are intact. A small ganglion cyst is seen a rising from the volar aspect of the distal radioulnar joint measuring approximately 10 x 6 x 13 mm. A somewhat lobular small fluid collection is also seen extending proximally from the pisotriquetral bradley int. IMPRESSION: 1. Nondisplaced fracture of the dorsal triquetrum with surrounding marrow edema. Additional small in complete fracture is seen at the dorsal aspect of the hamate with surrounding edema. 2. Mild extensor carpi ulnaris tendinosis. 3. Small ganglion cyst at the volar aspect of the distal radioulnar joint measuring 13 mm in maximum dimension. Reviewed by: Ken Hansen MD on 09/02/2020 9:16 AM PST Approved by: Ken Hansen MD on 09/02/2020 9:16 AM PST Station ID: [id number]
== END 2020-09-02 07:38 | disposition home or self-care (01) ==
LOC: DI 07:37
PROVIDERS: ATTEND Orthopaedic Surgery
DX: S62.115A Nondisplaced fracture of triquetrum [cuneiform] bone, left wrist, initial encounter for closed fracture (principal); S62.145A Nondisplaced fracture of body of hamate [unciform] bone, left wrist, initial encounter for closed fracture; M67.834 Other specified disorders of tendon, left wrist; M67.432 Ganglion, left wrist

== ENCOUNTER 2020-09-22 08:00 | Outpatient (CLI) | payer OTHER | END 2020-09-22 23:59 | disposition home or self-care (01) | LOC: LAB.R 08:00 | PROVIDERS: ATTEND Physician Assistant Medical | DX: R30.0 Dysuria (principal) | CPT/HCPCS: 87086 ==

== ENCOUNTER 2021-01-26 21:34 | Outpatient (CLI) | payer OTHER | END 2021-01-26 21:35 | disposition home or self-care (01) | LOC: COV 21:34 | PROVIDERS: ATTEND Family Medicine | DX: R05 Cough (principal); R53.83 Other fatigue; R07.0 Pain in throat; R19.7 Diarrhea, unspecified; R09.81 Nasal congestion; Z20.822 Contact with and (suspected) exposure to COVID-19 ==

== ENCOUNTER 2021-03-09 15:51 | Outpatient (CLI) | payer OTHER | END 2021-03-09 15:52 | disposition home or self-care (01) | LOC: COV 15:51 | PROVIDERS: ATTEND Family Medicine | DX: Z20.822 Contact with and (suspected) exposure to COVID-19 (principal) ==

== ENCOUNTER 2021-07-01 08:00 | Outpatient (CLI) | payer OTHER | END 2021-07-01 23:59 | disposition home or self-care (01) | LOC: LAB.S 08:00 | PROVIDERS: ATTEND Physician Assistant Medical | DX: R05.9 Cough, unspecified (principal); Z20.822 Contact with and (suspected) exposure to COVID-19 ==

== ENCOUNTER 2021-07-02 08:00 | Outpatient (CLI) | payer OTHER ==
--- NOTE | 2021-07-02 12:45 | XRAY Report ---
PROCEDURE: Chest 2 View X-Ray INDICATIONS: COUGH TECHNIQUE: 2 view(s) of the chest. COMPARISON: December 09, 2014 FINDINGS: SUPPORT DEVICES: None. LUNGS/PLEURA: No focal consolidation, pleural effusion or space-occupying pneumothorax. MEDIASTINUM: The cardiomediastinal silhouette is within normal limits. BONES/SOFT TISSUES: No acute abnormality. IMPRESSION: 1.No acute cardiopulmonary abnormality. Reviewed by: Rocky Mares MD on 07/02/2021 12:44 PM [facility] Approved by: Rocky Mares MD on 07/02/2021 12:44 PM [facility] Station ID: [id number]
== END 2021-07-02 23:59 | disposition home or self-care (01) ==
LOC: DI.S 08:00
PROVIDERS: ATTEND Physician Assistant
DX: R05.9 Cough, unspecified (principal)

== ENCOUNTER 2021-10-11 13:48 | Outpatient (CLI) | payer OTHER ==
[2021-10-11 20:04] LABS: BILIRUBIN,URINE NEGATIVE (NEGATIVE); GLUCOSE, URINE (UA) NEGATIVE (NEGATIVE); KETONES,URINE (UA) NEGATIVE (NEGATIVE); LEUKOCYTE ESTERASE, URINE NEGATIVE (NEGATIVE); NITRITE,URINE NEGATIVE (NEGATIVE); OCCULT BLOOD,URINE NEGATIVE (NEGATIVE); PROTEIN,URINE NEGATIVE (NEGATIVE); UROBILINOGEN,URINE 0.2 (NORMAL) E.U./dL (NORMAL)
[2021-10-11 20:06] LABS: BASOPHILS % (AUTO) 0.5 %; CLARITY,URINE CLEAR (CLEAR); EOSINOPHILS % (AUTO) 0.6 %; HCT - HEMATOCRIT 36.2 % (37.0-47.0); HGB - HEMOGLOBIN 11.8 g/dL (12.0-16.0); LYMPHOCYTES % (AUTO) 30.9 %; MEAN CORPUSCULAR HEMOGLOBIN 29.2 pg (27.0-31.0); MEAN CORPUSCULAR HGB CONC 32.6 g/dL (32.0-36.0); MEAN CORPUSCULAR VOLUME 89.6 fL (81.0-99.0); MEAN PLATELET VOLUME 10.8 fL (7.9-10.8); MONOCYTES # (AUTO) 0.4 10^3/uL (0.0-1.0); MONOCYTES % (AUTO) 6.1 %; NEUTROPHILS % (AUTO) 61.7 %; PLT - PLATELET COUNT 305 10^3/uL (130-450); RED BLOOD COUNT 4.04 10^6/uL (4.20-5.40); RED CELL DISTRIBUTION WIDTH 14.4 % (12.0-15.0); WHITE BLOOD COUNT 6.4 x10^3/uL (4.8-10.8)
[2021-10-11 20:26] LABS: BACTERIA,URINE Rare /HPF (None Seen); RBC,URINE None Seen /HPF (0-5); SQUAMOUS EPITHELIAL CELL,UR RARE Squamous (<= Few); WBC,URINE 0-3 /HPF (0-5)
== END 2021-10-11 13:49 | disposition home or self-care (01) ==
LOC: LAB.S 13:48
PROVIDERS: ATTEND Internal Medicine
DX: R19.7 Diarrhea, unspecified (principal); R39.89 Other symptoms and signs involving the genitourinary system
CPT/HCPCS: 36415; 81001; 85025; 87086

== ENCOUNTER 2021-10-12 09:30 | Outpatient (CLI) | payer OTHER | END 2021-10-12 23:59 | disposition home or self-care (01) | LOC: LAB.S 09:30 | PROVIDERS: ATTEND Internal Medicine | DX: R19.7 Diarrhea, unspecified (principal) | CPT/HCPCS: 87493 ==

== ENCOUNTER 2022-01-25 12:50 | Emergency (ER) | payer MEDICARE, OTHER ==
[2022-01-25 13:23] LABS: BILIRUBIN,URINE NEGATIVE (NEGATIVE); GLUCOSE, URINE (UA) NEGATIVE (NEGATIVE); KETONES,URINE (UA) NEGATIVE (NEGATIVE); LEUKOCYTE ESTERASE, URINE NEGATIVE (NEGATIVE); NITRITE,URINE NEGATIVE (NEGATIVE); OCCULT BLOOD,URINE TRACE-INTA (NEGATIVE); PROTEIN,URINE NEGATIVE (NEGATIVE); UROBILINOGEN,URINE 0.2 (NORMAL) E.U./dL (NORMAL)
[2022-01-25 13:24] LABS: CLARITY,URINE CLEAR (CLEAR)
[2022-01-25 13:35] LABS: BASOPHILS % (AUTO) 0.3 %; EOSINOPHILS # (AUTO) 0.1 10^3/uL (0.0-0.7); EOSINOPHILS % (AUTO) 0.7 %; HCT - HEMATOCRIT 38.7 % (37.0-47.0); HGB - HEMOGLOBIN 12.7 g/dL (12.0-16.0); LYMPHOCYTES # (AUTO) 1.5 10^3/uL (1.5-3.5); LYMPHOCYTES % (AUTO) 12.8 %; MEAN CORPUSCULAR HGB CONC 32.8 g/dL (32.0-36.0); MEAN CORPUSCULAR VOLUME 91.5 fL (81.0-99.0); MEAN PLATELET VOLUME 9.8 fL (7.9-10.8); MONOCYTES # (AUTO) 0.8 10^3/uL (0.0-1.0); MONOCYTES % (AUTO) 6.2 %; NEUTROPHILS # (AUTO) 9.6 10^3/uL (1.5-6.6); NEUTROPHILS % (AUTO) 79.6 %; PLT - PLATELET COUNT 317 10^3/uL (130-450); RED BLOOD COUNT 4.23 10^6/uL (4.20-5.40); RED CELL DISTRIBUTION WIDTH 13.7 % (12.0-15.0)
[2022-01-25 13:49] LABS: ALBUMIN 4.8 g/dL (3.2-5.5); ALBUMIN/GLOBULIN RATIO 1.5 (1.0-2.2); BILIRUBIN,TOTAL 0.6 mg/dL (0.2-1.0); CALCIUM 9.7 mg/dL (8.5-10.3); CREATININE 0.7 mg/dL (0.4-1.0); POTASSIUM 4.6 mmol/L (3.5-5.0)
--- NOTE | 2022-01-25 14:00 | ED Physician Documentation ---
PD HPI ABD PAIN - Stated complaint Stated Complaint: ABD PX - Chief complaint Chief Complaint: Abd Pain - History obtained from History obtained from: Patient - History of Present Illness Timing - onset: How many days ago (3-4) Timing - duration: Days (3-4) Timing - details: Gradual onset, Still present Quality: Cramping, Aching, Pain Location: Suprapubic, LLQ Radiation: Lower back Improved by: Laying still. No: Eating, BM Worsened by: Eating, Moving, Palpation Associated symptoms: Nausea. No: Fever, Vomiting, Diarrhea (but having soft stool), Constipation, Melena, Hematochezia Similar symptoms before: Diagnosis (similar to prior diverticulitits episodes, but hurting more than other times.) Recently seen: No: Not recently seen (had abx oral available from prior episodes through PMD and started moxifloxicin 2 days ago and has feelt worse.) Review of Systems Constitutional: denies: Fever, Chills Nose: denies: Rhinorrhea / runny nose, Congestion Throat: denies: Sore throat Respiratory: denies: Cough GI: reports: Abdominal Pain, Nausea. denies: Vomiting, Constipation, Bloody / black stool Skin: denies: Rash, Lesions PD PAST MEDICAL HISTORY - Past Medical History Cardiovascular: Valve disorder Respiratory: Pneumonia GI: Diverticulitis - Past Surgical History Past Surgical History: Yes General: Appendectomy Ortho: Hip replacement - Present Medications Home Medications: Ambulatory Orders Medication Instructions Recorded Confirmed Amox/Clav 875/125 [Augmentin] 1 each PO Q12H #28 tablet 05/19/19 Hydrocodone/Acetaminophen 1 - 2 each PO Q6H PRN #14 tablet 05/19/19 [Hydrocodon-Acetaminophen 5-325] Ondansetron Odt [Zofran] 4 mg TL Q6H PRN #10 tablet 05/19/19 Clindamycin HCl [Clindamycin 300MG 600 mg PO TID #58 capsule 06/01/19 CAP] Moxifloxacin [Avelox] 400 mg PO DAILY #9 tablet 06/01/19 Ondansetron Odt [Zofran Odt] 4 mg TL Q6H PRN #10 tablet 06/01/19 oxyCODONE [Roxicodone] 5 - 10 mg PO Q6H PRN #10 tablet 06/01/19 HYDROcod/ACETAM 5/325 [[place] 5/325] 1 ea PO Q6H PRN #15 tablet 01/25/22 Ondansetron Odt [Zofran] 4 mg TL Q6H PRN #10 tablet 01/25/22 Sulfamethox/Trimeth 800/160 1 each PO BID #14 tablet 01/25/22 [Bactrim Ds 800/160] - Allergies Allergies/Adverse Reactions: Allergies Allergy/AdvReac Type Severity Reaction Status Date / Time Penicillins Allergy Intermediate Rash Verified 01/25/22 13:05 metronidazole [From Flagyl] Allergy Headache Verified 01/25/22 13:05 Metronidazole HCl * Allergy Headache Verified 01/25/22 13:05 [From Flagyl] tetracycline [Tetracycline] Allergy Respiratory Verified 01/25/22 13:05 - Social History Does the pt smoke?: No Smoking Status: Never smoker Does the pt drink ETOH?: Yes Does the pt have substance abuse?: No - Immunizations Immunizations are current?: Yes - POLST Patient has POLST: No PD ED PE NORMAL - Vitals Vital signs reviewed: Yes - General General: Alert and oriented X 3, No acute distress, Well developed/nourished - Abdomen Abdomen: Normal bowel sounds, Soft, Non distended, No organomegaly, Other (tender LLQ and mid suprapubic to palpation and percussion. No rebound tenderness. Mild feeling of lower distension. ) - Female Female : Deferred - Rectal Rectal: Deferred - Back Back: No CVA TTP - Derm Derm: Normal color, Warm and dry Results - Vitals Vitals: Oxygen O2 Source Room air - Labs Labs: Laboratory Tests 01/25/22 01/25/22 01/25/22 13:12 13:28 13:28 WBC 12.0 H RBC 4.23 Hgb 12.7 Hct 38.7 MCV 91.5 MCH 30.0 MCHC 32.8 RDW 13.7 Plt Count 317 MPV 9.8 Neut # (Auto) 9.6 H Lymph # (Auto) 1.5 [place] # (Auto) 0.8 Eos # (Auto) 0.1 Baso # (Auto) 0.0 Absolute Nucleated RBC 0.00 Nucleated RBC % 0.0 Sodium 130 L Potassium 4.6 Chloride 93 L Carbon Dioxide 28 Anion Gap 9.0 BUN 9 Creatinine 0.7 Estimated GFR (MDRD) 83 L Glucose 147 H Calcium 9.7 Total Bilirubin 0.6 AST 33 ALT 29 Alkaline Phosphatase 95 Total Protein 8.0 Albumin 4.8 Globulin 3.2 Albumin/Globulin Ratio 1.5 Lipase 189 H Urine Color YELLOW Urine Clarity CLEAR Urine pH 7.0 Ur Specific [place] <=1.005 Urine Protein NEGATIVE Urine Glucose (UA) NEGATIVE Urine Ketones NEGATIVE Urine Occult Blood TRACE-INTA Urine Nitrite NEGATIVE Urine Bilirubin NEGATIVE Urine Urobilinogen 0.2 (NORMAL) Ur Leukocyte Esterase NEGATIVE Ur Microscopic Review NOT INDICATED Urine Culture Comments NOT INDICATED - Rads (name of study) abd/pelvic CT Radiology: Prelim report reviewed, See rad report PD MEDICAL DECISION MAKING - ED course Complexity details: reviewed results, re-evaluated patient (patient would like to continue Moxi for couple more days and if not improving, to change abx to Bactrim (uptodate recommendation after quinolone and PCN/Flagyl allergic)), considered differential (diverticulitis likely, but worse than prior episodes. Consider CT to ensure not complicated. Can give extra dose IV abx. and some pain meds. ), d/w patient Departure - Departure Disposition: 01 Home, Self Care Clinical Impression: Lower abdominal pain, Sigmoid diverticulitis Condition: Stable Record reviewed to determine appropriate education?: Yes Instructions: ED Diverticulitis Prescriptions: Sulfamethox/Trimeth 800/160 [Bactrim Ds 800/160] 1 each PO BID #14 tablet HYDROcod/ACETAM 5/325 [[place] 5/325] 1 ea PO Q6H PRN #15 tablet PRN Reason: Pain Ondansetron Odt [Zofran] 4 mg TL Q6H PRN #10 tablet PRN Reason: Nausea / Vomiting Comments: Your CT scan shows local inflammation in the sigmoid area around diverticula but no signs of perforation or abscess. Your white count is elevated. Suggestion would be inflammatory as well as infectious components. Stay well-hydrated. Some mild stool softener or fiber can be used daily for soft stools. Gastroenterology guidelines suggest use of anti-inflammatories. Use ibuprofen 400 to 600 mg 2-3 times daily for the next several days to week. Take it with food. To that add Tylenol every 4-6 hours if needed for pain or hydrocodone/acetaminophen if needed for worse pain. Use ondansetron if needed for nausea. For now continue with your moxifloxacin for another couple of days and see if you start improving well. If not, then switch to Bactrim antibiotic twice daily for a week. I looked at the latest guidelines for antibiotic choice and this was preferred as the next line after the penicillins and quinolones. I transmitted prescriptions for Zofran and hydrocodone to the [facility] pharmacy in [place]. I am prescribing a short course of narcotic pain medication for you. These are potentially dangerous and addictive medications that should be used carefully. These medications may constipate you. Take an eygh-okt-bahxrpr stool softener such as docusate twice daily with plenty of water while taking these medications. If you go 24 hours without a bowel movement, take hoot-rib-pkavlrr MiraLAX, per package instructions. Do not drink or drive while taking these medications. If you received narcotic or sedating medications while in the emergency department do not drive for 24 hours. Store this medication in a safe, secure place and out of reach of children. It is a violation of federal law to give or sell this medication to another person or to use in a manner other than prescribed. The ED will not refill narcotic prescriptions, including prescriptions lost or stolen. You can dispose of unwanted medications at the [facility]'s office or at several pharmacies such as [facility]. Discharge Date/Time: 01/25/22 17:15
[2022-01-25] MEDS ORDERED: levoFLOXacin 500 MG/100 ML 500 MG/100 ML BAG IV STA (14:29)
[2022-01-25] MEDS ORDERED: SODIUM CHLORIDE 0.9% 1,000 ML IV STA (14:29)
[2022-01-25] MEDS ORDERED: KETOROLAC 15 MG/ML VIAL IVP STA (14:29)
--- NOTE | 2022-01-25 16:24 | CT Report ---
PROCEDURE: CT abdomen and pelvis without contrast INDICATIONS: lower abd pain, h/o diverticulitis TECHNIQUE: Noncontrast 5 mm thick sections acquired from the diaphragms to the symphysis. 5 mm coronal and sagi ttal reformats were then performed. For radiation dose reduction, the following was used: automated exposure control, adjustment of mA and/or kV according to patient size. COMPARISON: None. FINDINGS: Image quality: Excellent. ABDOMEN: Lung bases: Several calcified granulomas noted lung bases, stable from the prior. Solid organs: Liver and spleen are normal in size. Gallbladder unremarkable. Pancreas is normal in contours. No adrenal nodules. Kidneys are normal in size, without hydronephrosis or nephrolithiasi s. Peritoneum and bowel: Multiple diverticula arise from the sigmoid colon. Pericolonic inflammatory jammie nge centered in the mid sigmoid noted. No evidence of abscess or free air. No bowel obstruction. Mode rate fecal debris in the right colon noted. Small bowel unremarkable.. Prior appendectomy noted. Nodes and vessels: No retroperitoneal or mesenteric adenopathy by size criteria. Aorta and inferior vena cava are normal in caliber. Miscellaneous: No ventral hernias. PELVIS: Genitourinary: Bladder wall thickness is normal. Miscellaneous: No inguinal hernias or adenopathy. Bones: No suspicious bony lesions. No vertebral body compression fractures. Right hip prosthesis p resent. IMPRESSION: Mild uncomplicated diverticulitis. No abscess, free air or bowel obstruction. Reviewed by: Sam Kim MD on 01/25/2022 3:23 PM [facility] Approved by: Sam Kim MD on 01/25/2022 3:23 PM [facility] Station ID: [id number]
[2022-01-25 17:16] VITALS: BP 146/74
== END 2022-01-25 17:15 | disposition home or self-care (01) ==
LOC: ED 12:50
DX: K57.32 Diverticulitis of large intestine without perforation or abscess without bleeding (principal)
CPT/HCPCS: 36415; 80053; 81001; 81003; 83690; 85025; 87086; 96365; 96375; 99284

== ENCOUNTER 2022-08-02 17:01 | Outpatient (CLI) | payer MEDICARE ==
--- NOTE | 2022-08-02 14:26 | XRAY Report ---
PROCEDURE: Ankle 3 View RT INDICATIONS: RIGHT ANKLE PAIN TECHNIQUE: 3 views of the ankle were acquired. COMPARISON: None FINDINGS: Bones: No fractures or dislocations. Ankle mortise is normally aligned. No suspicious bony lesions . Soft tissues: No tibiotalar joint effusion. Achilles tendon appears normal. IMPRESSION: No gross acute ankle fracture or dislocation. Ankle mortise is congruent. Reviewed by: Deyvi Bain MD on 08/02/2022 2:25 PM PST Approved by: Deyvi Bain MD on 08/02/2022 2:25 PM PST Station ID: [id number]
== END 2022-08-02 17:02 | disposition home or self-care (01) ==
LOC: DI.S 17:01
PROVIDERS: ATTEND Physician Assistant Medical
DX: M25.571 Pain in right ankle and joints of right foot (principal)

== ENCOUNTER 2022-08-31 09:21 | Outpatient (CLI) | payer MEDICARE | END 2022-08-31 09:22 | disposition home or self-care (01) | LOC: LAB.R 09:21 | PROVIDERS: ATTEND Internal Medicine Gastroenterology | DX: K57.32 Diverticulitis of large intestine without perforation or abscess without bleeding (principal) | CPT/HCPCS: 83993 ==

== ENCOUNTER 2023-02-27 08:00 | Outpatient (CLI) | payer MEDICARE ==
--- NOTE | 2023-02-27 15:13 | XRAY Report ---
PROCEDURE: Chest 2 View X-Ray INDICATIONS: PRODUCTIVE COUGH TECHNIQUE: 2 views of the chest were acquired. COMPARISON: None. FINDINGS: Surgical changes and devices: None. Lungs and pleura: No pleural effusions or pneumothorax. Lungs are clear. Mediastinum: Mediastinal contours appear normal. Heart size is normal. Bones and chest wall: No suspicious bony lesions. Overlying soft tissues appear unremarkable. IMPRESSION: No acute cardiopulmonary process. Reviewed by: Freddy Dow MD on 02/27/2023 3:11 PM PDT Approved by: Freddy Dow MD on 02/27/2023 3:11 PM PDT Station ID: [id number]
== END 2023-02-27 23:59 | disposition home or self-care (01) ==
LOC: DI.S 08:00
PROVIDERS: ATTEND Physician Assistant Medical
DX: R05.8 Other specified cough (principal); R09.89 Other specified symptoms and signs involving the circulatory and respiratory systems

== ENCOUNTER 2023-03-03 10:13 | Emergency (ER) | payer MEDICARE ==
--- NOTE | 2023-03-03 10:30 | ED Physician Documentation ---
PD HPI ABD PAIN - Stated complaint Stated Complaint: CONGESTION,DIARRHEA,LIGHTHEADED - Chief complaint Chief Complaint: Abd Pain - History obtained from History obtained from: Patient - History of Present Illness Timing - onset: How many weeks ago (had URI/viral type symptoms startted couple weeks ago and slowly improved, but now with 5-6 days of diarrhea and nausea, with less PO intake. Feeling weak and dehydrated. Called PCP and referred to ER for therapy.) Timing - duration: Days, Weeks Timing - details: Gradual onset, Still present Quality: Cramping, Aching, Pain (intermittent diffusely.) Radiation: No: Chest, Lower back Improved by: BM. No: Laying still Worsened by: Eating Associated symptoms: Nausea, Loss of appetite. No: Fever, Near syncope / syncope Similar symptoms before: Diagnosis (IBS and will have cramps/pains at times.) Review of Systems Constitutional: denies: Fever, Chills Nose: reports: Congestion. denies: Rhinorrhea / runny nose Throat: reports: Sore throat Respiratory: reports: Cough GI: reports: Abdominal Pain, Abdominal Swelling, Nausea, Vomiting, Diarrhea (chronic but with increased wateryness the past 2-3 weeks.) : denies: Dysuria, Frequency Skin: denies: Rash Neurologic: denies: Near syncope PD PAST MEDICAL HISTORY - Past Medical History Past Medical History: Yes Cardiovascular: Valve disorder Respiratory: Pneumonia GI: Diverticulitis, Other [employer]: None : None Psych: None Musculoskeletal: None Other Past Medical History: IBS - Past Surgical History Past Surgical History: Yes General: Appendectomy Ortho: Hip replacement - Present Medications Home Medications: Ambulatory Orders Medication Instructions Recorded Confirmed Amox/Clav 875/125 [Augmentin] 1 each PO Q12H #28 tablet 05/19/19 Hydrocodone/Acetaminophen 1 - 2 each PO Q6H PRN #14 tablet 05/19/19 [Hydrocodon-Acetaminophen 5-325] Ondansetron Odt [Zofran] 4 mg TL Q6H PRN #10 tablet 05/19/19 Clindamycin HCl [Clindamycin 300MG 600 mg PO TID #58 capsule 06/01/19 CAP] Moxifloxacin [Avelox] 400 mg PO DAILY #9 tablet 06/01/19 Ondansetron Odt [Zofran Odt] 4 mg TL Q6H PRN #10 tablet 06/01/19 oxyCODONE [Roxicodone] 5 - 10 mg PO Q6H PRN #10 tablet 06/01/19 HYDROcod/ACETAM 5/325 [[place] 5/325] 1 ea PO Q6H PRN #15 tablet 01/25/22 Ondansetron Odt [Zofran] 4 mg TL Q6H PRN #10 tablet 01/25/22 Sulfamethox/Trimeth 800/160 1 each PO BID #14 tablet 01/25/22 [Bactrim Ds 800/160] Moxifloxacin [Avelox] 400 mg PO DAILY #10 tablet 03/03/23 - Allergies Allergies/Adverse Reactions: Allergies Allergy/AdvReac Type Severity Reaction Status Date / Time Penicillins Allergy Intermediate Rash Verified 03/03/23 10:22 metronidazole [From Flagyl] Allergy Headache Verified 03/03/23 10:22 Metronidazole HCl * Allergy Headache Verified 03/03/23 10:22 [From Flagyl] tetracycline [Tetracycline] Allergy Respiratory Verified 03/03/23 10:22 - Social History Does the pt smoke?: No Smoking Status: Never smoker Does the pt drink ETOH?: Yes Does the pt have substance abuse?: No - Immunizations Immunizations are current?: Yes - POLST Patient has POLST: No PD ED PE NORMAL - Vitals Vital signs reviewed: Yes - General General: Alert and oriented X 3, No acute distress, Well developed/nourished - Neck Neck: Supple, no meningeal sign, No adenopathy - Cardiac Cardiac: RRR, No murmur - Respiratory Respiratory: Clear bilaterally - Abdomen Abdomen: Soft, Non distended, No organomegaly, Other (mild tender mid abd to upper abd without percussion nor rebound. ). No: Normal bowel sounds (diminished) - Derm Derm: Normal color, Warm and dry - Extremities Extremities: No edema, No calf tenderness / cord Results - Vitals Vitals: Vital Signs - 24 hr 03/03/23 03/03/23 03/03/23 10:17 10:52 11:55 Temperature 36.5 C Heart Rate 79 Respiratory 18 17 18 Rate Blood Pressure 163/67 H 154/74 H 151/67 H O2 Saturation 98 99 100 03/03/23 03/03/23 13:00 14:39 Temperature Heart Rate 75 68 Respiratory 15 16 Rate Blood Pressure 162/81 H 159/80 H O2 Saturation 100 98 Oxygen O2 Source Room air - Labs Labs: Laboratory Tests 03/03/23 03/03/23 11:04 11:04 WBC 6.3 RBC 4.23 Hgb 12.3 Hct 37.7 MCV 89.1 MCH 29.1 MCHC 32.6 RDW 13.3 Plt Count 244 MPV 9.9 Neut # (Auto) 4.4 Lymph # (Auto) 1.4 L [place] # (Auto) 0.5 Eos # (Auto) 0.0 Baso # (Auto) 0.0 Absolute Nucleated RBC 0.00 Nucleated RBC % 0.0 Sodium 134 L Potassium 4.0 Chloride 98 L Carbon Dioxide 29 Anion Gap 7.0 BUN 9 Creatinine 0.6 Estimated GFR (MDRD) 99 Glucose 109 H Calcium 9.9 Magnesium 1.7 Total Bilirubin 0.5 AST 41 ALT 42 Alkaline Phosphatase 132 H Total Protein 7.4 Albumin 4.6 Globulin 2.8 Albumin/Globulin Ratio 1.6 Lipase 146 H PD Medical Decision Making - ED course Complexity details: re-evaluated patient (feeling more energy and not lightheaded after 2 lites fluid and Zofran for nausea. ), considered differential, d/w patient Reviewed Lab Results: labs blood tests okay here. Consider stool studies for c.diff/culture. ED course: The patient does have chronic irritable bowel syndrome and has commonly abdominal cramps and soft stool/diarrhea. She takes supplements at home to help with these symptoms. She has had a increased amount of cramping and nausea over the last several days to week. She has had increased diarrhea without any noted blood or melena. She is feeling volume depleted and lightheaded despite attempted oral intake at home and use of her ondansetron. She contacted her primary care and was suggested to come to the ER for rehydration. The patient also feels that her diverticulitis symptoms are starting. She typically will take moxifloxacin for that. The patient was given IV fluids here. She was given a ondansetron IV. She is feeling reasonably improved and less lightheaded. She was unable to give a stool sample here and was given a hat and specimen cup for home for potential testing of secondary infection such as C. difficile etc. She had been recently seen with a colonoscopy just a couple months ago that showed a polyp removal but otherwise no colitis evident, diverticula noted. She was treated for diverticulitis empirically about 3 months ago. Departure - Departure Disposition: 01 Home, Self Care Clinical Impression: Volume depletion, gastrointestinal loss, Diverticulitis, IBS (irritable bowel syndrome) Condition: Stable Record reviewed to determine appropriate education?: Yes Follow-Up: Janett Giron MD [Primary Care Provider] - Prescriptions: Moxifloxacin [Avelox] 400 mg PO DAILY #10 tablet Comments: Small frequent fluids. Continue with your usual supplements at home. Use the ondansetron you have if needed for nausea. You did receive IV fluids here to rehydrate. If you feel that your diverticular type symptoms are persisting/increasing, then you can add moxifloxacin daily for the next week. Tylenol every 4-6 hours if needed for pains. If you continue with a increased/more than usual diarrhea, then you could bring a sample to your primary care to have it tested for bacterial type secondary infection such as C. difficile, Shigella etc. Return to the ER as needed. [facility] in [place]. Forms: PCP List Discharge Date/Time: 03/03/23 14:42
[2023-03-03] MEDS ORDERED: SODIUM CHLORIDE 0.9% 1,000 ML IV STA ×2 (10:52→12:04)
[2023-03-03] MEDS ORDERED: ONDANSETRON 4 MG/2 ML VIAL IVP STA ×2 (10:52→13:32)
[2023-03-03 11:13] LABS: BASOPHILS % (AUTO) 0.5 %; EOSINOPHILS % (AUTO) 0.3 %; HCT - HEMATOCRIT 37.7 % (37.0-47.0); HGB - HEMOGLOBIN 12.3 g/dL (12.0-16.0); LYMPHOCYTES # (AUTO) 1.4 10^3/uL (1.5-3.5); LYMPHOCYTES % (AUTO) 21.9 %; MEAN CORPUSCULAR HEMOGLOBIN 29.1 pg (27.0-31.0); MEAN CORPUSCULAR HGB CONC 32.6 g/dL (32.0-36.0); MEAN CORPUSCULAR VOLUME 89.1 fL (81.0-99.0); MEAN PLATELET VOLUME 9.9 fL (7.9-10.8); MONOCYTES # (AUTO) 0.5 10^3/uL (0.0-1.0); MONOCYTES % (AUTO) 7.6 %; NEUTROPHILS # (AUTO) 4.4 10^3/uL (1.5-6.6); NEUTROPHILS % (AUTO) 69.4 %; PLT - PLATELET COUNT 244 10^3/uL (130-450); RED BLOOD COUNT 4.23 10^6/uL (4.20-5.40); RED CELL DISTRIBUTION WIDTH 13.3 % (12.0-15.0); WHITE BLOOD COUNT 6.3 x10^3/uL (4.8-10.8)
[2023-03-03 11:25] LABS: ALBUMIN 4.6 g/dL (3.2-5.5); ALBUMIN/GLOBULIN RATIO 1.6 (1.0-2.2); BILIRUBIN,TOTAL 0.5 mg/dL (0.2-1.0); CALCIUM 9.9 mg/dL (8.5-10.3); CREATININE 0.6 mg/dL (0.6-1.3); MAGNESIUM 1.7 mg/dL (1.7-2.3); TOTAL PROTEIN 7.4 g/dL (6.4-8.9)
[2023-03-03 14:47] VITALS: BP 159/80
== END 2023-03-03 14:42 | disposition home or self-care (01) ==
LOC: ED 10:13
DX: K57.92 Diverticulitis of intestine, part unspecified, without perforation or abscess without bleeding (principal); K58.9 Irritable bowel syndrome, unspecified; E86.9 Volume depletion, unspecified
CPT/HCPCS: 36415; 80053; 83690; 83735; 85025; 96361; 96374; 99284

== ENCOUNTER 2023-06-24 08:00 | Outpatient (CLI) | payer MEDICARE ==
[2023-06-27 05:13] LABS: ADENOVIRUS F 40/41 Not Detected (Not Detected); ASTROVIRUS Not Detected (Not Detected); C DIFFICILE TOXIN A/B Not Detected (Not Detected); CAMPYLOBACTER Not Detected (Not Detected); CRYPTOSPORIDIUM Not Detected (Not Detected); CYCLOSPORA CAYETANENSIS Not Detected (Not Detected); ENTAMOEBA HISTOLYTICA Not Detected (Not Detected); ENTEROAGGREGATIVE E COLI Not Detected (Not Detected); ENTEROPATHOGENIC E COLI Detected (Not Detected); ENTEROTOXIGENIC E COLI Not Detected (Not Detected); GIARDIA LAMBLIA Not Detected (Not Detected); NOROVIRUS GI/GII Not Detected (Not Detected); PLESIOMONAS SHIGELLOIDES Not Detected (Not Detected); ROTAVIRUS A Not Detected (Not Detected); SALMONELLA Not Detected (Not Detected); SAPOVIRUS Not Detected (Not Detected); SHIGA-TOXIN-PRODUCING E COLI Not Detected (Not Detected); SHIGELLA/ENTEROINVASIVE E COLI Detected (Not Detected); VIBRIO Not Detected (Not Detected); VIBRIO CHOLERAE Not Detected (Not Detected); YERSINIA ENTEROCOLITICA Not Detected (Not Detected)
== END 2023-06-24 23:59 | disposition home or self-care (01) ==
LOC: LAB.R 08:00
DX: R19.7 Diarrhea, unspecified (principal)
CPT/HCPCS: 87507